=== PATIENT | female | born 2000 | race Caucasian/White ===

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

== ENCOUNTER → 2020-11-28 | Outpatient (CLI) | payer OTHER ==
--- NOTE | 2020-11-28 10:45 | US ---
EXAMINATION TYPE: US abdomen complete DATE OF EXAM: 11/28/2020 COMPARISON: NONE CLINICAL HISTORY: N91.2 Amenorrhea, unspecified. Elevated liver enzymes some limitations due to over lying bowel gas. EXAM MEASUREMENTS: Liver Length: 13.6 cm Gallbladder Wall: .13 cm CBD: .3 cm Spleen: 10.3 cm Right Kidney: 9.1 x 4.7 x 3.6 cm Left Kidney: 8.8 x 3.5 x 3.6 cm Pancreas: Obscured by bowel gas Liver: wnl Gallbladder: No stones seen Evidence for sonographic Parnell's sign: No CBD: Limited due to bowel gas. Spleen: wnl Right Kidney: Lower pole limited due to bowel gas. Left Kidney: wnl Upper IVC: wnl Abd Aorta: wnl The visualized liver is homogenous. The intrahepatic portion of the IVC and visualized abdominal aor ta are within normal limits. There is no evidence of cholelithiasis. Common bile duct is not distin ctly visualized and presumed not dilated. The visualized portions of the pancreas are homogenous. T he spleen is unremarkable. Kidneys are symmetric and free of hydronephrosis. No renal lesions are s een. IMPRESSION: Slightly suboptimal study, visualized portions of abdomen are unremarkable. No worrisome intrahepatic mass or intrahepatic ductal dilatation noted.
--- NOTE | 2020-11-28 10:46 | US ---
EXAMINATION TYPE: US pelvic complete DATE OF EXAM: 11/28/2020 COMPARISON: Pelvic ultrasound September 13, 2015 CLINICAL HISTORY: N91.2 Amenorrhea, unspecified. Amenorrhea TECHNIQUE: Transabdominal (TA). Transabdominal sonographic images of the pelvis were acquired. EXAM MEASUREMENTS: Uterus: 6.0 x 2.8 x 3.6 cm Endometrial Stripe: .5 cm Right Ovary: 2.6 x 1.0 x 1.5 cm Left Ovary: 3.0 x 2.1 x 2.5 cm 1. Uterus: Anteverted wnl 2. Endometrium: wnl 3. Right Ovary: Limited due to bowel gas 4. Left Ovary: follicles seen 5. Bilateral Adnexa: wnl 6. Posterior cul-de-sac: wnl Anteverted uterus. Endometrial stripe within normal limits. No free fluid. Ovaries symmetric and normal in size. IMPRESSION: Unremarkable transabdominal pelvic ultrasound.
== END | disposition home or self-care (01) ==
LOC: RADUSWWP 09:41
PROVIDERS: ATTEND Family Medicine
DX: N91.2 Amenorrhea, unspecified (principal)
CPT/HCPCS: 76700; 76856

== ENCOUNTER 2021-08-15 13:48 | Emergency (ER) | payer OTHER ==
[2021-08-15 15:11] VITALS: RESP 16
[2021-08-15 16:04] VITALS: TEMP 99.9
[2021-08-15] MEDS ORDERED: ACETAMINOPHEN TAB 500 MG TAB PO STA (16:13)
--- NOTE | 2021-08-15 16:14 | ED ---
General Adult HPI - General Chief complaint: Fever Stated complaint: chest pain, body aches, fever Time Seen by Provider: 08/15/21 15:48 Source: patient Mode of arrival: ambulatory Limitations: no limitations - History of Present Illness Initial comments: 20-year-old female without any significant past medical history presents to the emergency room for a chief complaint of high heart rate. Patient states that since last night she has had a fever. States her heart rate has been in the 110s. Patient states she did take Motrin prior to arrival. Patient states this change in her heart rate concerned her and she lives to be evaluated for it. She did develop a cough and congestion yesterday as well. She has had a little bit of chest tightness in addition. Denies any significant shortness of breath. Patient has no other complaints at this time including shortness of breath, chest pain, abdominal pain, nausea or vomiting, headache, or visual changes. - Related Data Home Medications Medication Instructions Recorded Confirmed ALPRAZolam [Xanax] 0.5 mg PO DAILY PRN 09/08/15 09/14/15 Escitalopram [Lexapro] 20 mg PO HS 09/08/15 09/14/15 cloNIDine HCL [Catapres] 0.1 mg PO HS 09/08/15 09/14/15 Naproxen [Naprosyn] 250 mg PO Q6H 09/13/15 09/14/15 Ondansetron [Zofran] 4 mg PO Q8H PRN 09/13/15 09/14/15 Ascorbic Acid [Vitamin C] 500 mg PO DAILY 09/14/15 09/14/15 Calcium Carbonate [Calcium] 600 mg PO DAILY 09/14/15 09/14/15 Cholecalciferol [Vitamin D3] 2,000 unit PO DAILY 09/14/15 09/14/15 Tylenol W/Codeine #2 1 tab PO TID PRN 09/14/15 09/14/15 Previous Rx's Medication Instructions Recorded Dicyclomine [Bentyl] 10 mg PO QID PRN #10 capsule 09/17/15 Ibuprofen [Motrin] 400 mg PO Q6HR PRN #25 tab 09/17/15 Omeprazole [PriLOSEC] 20 mg PO AC-BRKFST #60 cap 09/17/15 Ondansetron [Zofran ODT] 4 mg PO Q8HR PRN #10 tab 09/17/15 Polyethylene Glycol 3350 [Miralax] 17 gm PO DAILY #510 bottle 09/17/15 Allergies Allergy/AdvReac Type Severity Reaction Status Date / Time No Known Allergies Allergy Verified 08/15/21 15:11 Review of Systems ROS Statement: Those systems with pertinent positive or pertinent negative responses have been documented in the HPI. ROS Other: All systems not noted in ROS Statement are negative. Past Medical History Past Medical History: No Reported History History of Any Multi-Drug Resistant Organisms: None Reported Past Surgical History: No Surgical Hx Reported Past Psychological History: Anxiety Past Alcohol Use History: None Reported Past Drug Use History: None Reported - Past Family History Mother Family Medical History: Cancer Additional Family Medical History / Comment(s): mom had thyroid cancer. maternal grandparents - cancer maternal grandpa has heart disease and HTN General Exam Limitations: no limitations General appearance: alert, in no apparent distress Head exam: Present: atraumatic Eye exam: Present: normal appearance, PERRL, EOMI. Absent: scleral icterus, conjunctival injection ENT exam: Present: normal exam, mucous membranes moist Neck exam: Present: normal inspection, full ROM. Absent: tenderness Respiratory exam: Present: normal lung sounds bilaterally. Absent: respiratory distress, wheezes Cardiovascular Exam: Present: regular rate, normal rhythm, normal heart sounds GI/Abdominal exam: Present: soft, normal bowel sounds. Absent: distended, tenderness Course Vital Signs 08/15/21 08/15/21 14:33 16:03 Temperature 99.2 F 99.9 F H Pulse Rate 82 Respiratory 16 Rate Blood Pressure 120/76 O2 Sat by Pulse 98 Oximetry Medical Decision Making - Medical Decision Making vitals stable. Patient is well-appearing. Heart rate is regular and a normal rate. Suspect her tachycardia at home was secondary to fever. Patient had taken Motrin prior to arrival which probably helped as it is an antipyretic. She did test positive for COVID-19. At this time patient is stable for outpatient follow-up. She will return here for any worsening symptoms. She does not qualify for priority criteria antibody infusion. - Lab Data Lab Results 08/15/21 Range/Units 15:12 Coronavirus (PCR) Detected A (Not Detectd) Disposition Clinical Impression: COVID-19 Disposition: HOME SELF-CARE Condition: Good Instructions (If sedation given, give patient instructions): Coronavirus Disease 2019 (COVID-19), Fever in Adults (ED) Additional Instructions: Please alternate Motrin and Tylenol up to every 3 hours for fever. Drink plenty of fluids. Follow-up with your doctor. Return to the emergency room for any worsening symptoms. Is patient prescribed a controlled substance at d/c from ED?: No Referrals: Gurmeet Ochoa MD [Primary Care Provider] - 1-2 days Time of Disposition: 16:13
[2021-08-15 16:23] VITALS: BP 120/75; PULSE 86
== END 2021-08-15 16:24 | disposition home or self-care (01) ==
LOC: EC 13:48
DX: U07.1 COVID-19 (principal)
CPT/HCPCS: 87635; 99284

== ENCOUNTER 2021-10-18 00:16 | Emergency (ER) | payer OTHER ==
[2021-10-18 00:29] VITALS: TEMP 97.9
[2021-10-18] MEDS ORDERED: SODIUM CHLORIDE 0.9% 1,000 ML IV STA (01:07)
[2021-10-18] MEDS ORDERED: ONDANSETRON 4 MG/2 ML VIAL IVP STA ×2 (01:07→03:36)
[2021-10-18] MEDS ORDERED: FAMOTIDINE 20 MG/2 ML VIAL IV STA (01:08)
--- NOTE | 2021-10-18 01:11 | ED ---
General Adult HPI - General Chief complaint: Nausea/Vomiting/Diarrhea Stated complaint: Vomiting Time Seen by Provider: 10/18/21 01:00 Source: patient, family, RN notes reviewed, old records reviewed Mode of arrival: ambulatory Limitations: no limitations - History of Present Illness Initial comments: Well-appearing 20-year-old female presents with complaints of nausea vomiting diarrhea for the past 4 hours. She states did not member had similar symptoms yesterday which have resolved today. She states that she was vomiting so hard she passed out. She states that the pain is cramping in nature and somewhat relieved with vomiting and diarrhea. -: hour(s) (4) Location: abdomen Severity scale (1-10): 7 Quality: aching, other (cramp) Consistency: intermittent Associated Symptoms: nausea/vomiting, other (diarrhea) - Related Data Home Medications Medication Instructions Recorded Confirmed ALPRAZolam [Xanax] 0.5 mg PO DAILY PRN 09/08/15 09/14/15 Escitalopram [Lexapro] 20 mg PO HS 09/08/15 09/14/15 cloNIDine HCL [Catapres] 0.1 mg PO HS 09/08/15 09/14/15 Naproxen [Naprosyn] 250 mg PO Q6H 09/13/15 09/14/15 Ondansetron [Zofran] 4 mg PO Q8H PRN 09/13/15 09/14/15 Ascorbic Acid [Vitamin C] 500 mg PO DAILY 09/14/15 09/14/15 Calcium Carbonate [Calcium] 600 mg PO DAILY 09/14/15 09/14/15 Cholecalciferol [Vitamin D3] 2,000 unit PO DAILY 09/14/15 09/14/15 Tylenol W/Codeine #2 1 tab PO TID PRN 09/14/15 09/14/15 Previous Rx's Medication Instructions Recorded Dicyclomine [Bentyl] 10 mg PO QID PRN #10 capsule 09/17/15 Ibuprofen [Motrin] 400 mg PO Q6HR PRN #25 tab 09/17/15 Omeprazole [PriLOSEC] 20 mg PO AC-BRKFST #60 cap 09/17/15 Ondansetron [Zofran ODT] 4 mg PO Q8HR PRN #10 tab 09/17/15 Polyethylene Glycol 3350 [Miralax] 17 gm PO DAILY #510 bottle 09/17/15 Allergies Allergy/AdvReac Type Severity Reaction Status Date / Time No Known Allergies Allergy Verified 10/18/21 00:25 Review of Systems ROS Statement: Those systems with pertinent positive or pertinent negative responses have been documented in the HPI. ROS Other: All systems not noted in ROS Statement are negative. Past Medical History Past Medical History: No Reported History History of Any Multi-Drug Resistant Organisms: None Reported Past Surgical History: No Surgical Hx Reported Past Psychological History: Anxiety Smoking Status: Never smoker Past Alcohol Use History: None Reported Past Drug Use History: None Reported - Past Family History Mother Family Medical History: Cancer Additional Family Medical History / Comment(s): mom had thyroid cancer. ma ternal grandparents - cancer maternal grandpa has heart disease and HTN General Exam Limitations: no limitations General appearance: alert, in no apparent distress Head exam: Present: atraumatic Eye exam: Present: normal appearance. Absent: scleral icterus, conjunctival injection ENT exam: Present: normal exam, normal oropharynx, mucous membranes moist Neck exam: Present: normal inspection, full ROM. Absent: tenderness, meningis mus Respiratory exam: Present: normal lung sounds bilaterally. Absent: respiratory distress, wheezes, rales, rhonchi, stridor, chest wall tenderness, accessory muscle use, decreased breath sounds Cardiovascular Exam: Present: tachycardia GI/Abdominal exam: Present: soft. Absent: distended, tenderness, guarding, rebound, rigid Extremities exam: Present: normal capillary refill Back exam: Present: normal inspection, full ROM. Absent: tenderness, CVA tenderness (R), CVA tenderness (L), rash noted Neurological exam: Present: alert, oriented X3 Psychiatric exam: Present: normal affect, normal mood Skin exam: Present: warm, dry, intact. Absent: rash, cyanosis, diaphoretic Course Vital Signs 10/18/21 10/18/21 00:25 01:27 Temperature 97.9 F Pulse Rate 111 H 88 Respiratory 20 16 Rate Blood Pressure 111/78 104/79 O2 Sat by Pulse 97 99 Oximetry Medical Decision Making - Medical Decision Making Well-appearing 20-year-old female presents with complaints of nausea vomiting diarrhea for the past 4 hours. She states that family member had similar symptoms yesterday and his symptoms have resolved today. White blood cell count is 17. This is likely from persistent vomiting. Electrolytes are unremarkable. Influenza, coronavirus and RSV swab negative Patient was given a liter of normal saline with Zofran and Pepcid and states feeling much better. Vital signs are stable. patient remains afebrile with temperature 98.9. She is up ambulating with steady gait. Upon reexam abdomen is soft and minimally tender in the left upper quadrant. She has no right lower quadrant pain. This is likely a viral illness as another family member had similar symptoms yesterday. I did discuss with the patient's symptoms of appendicitis including right lower quadrant pain with or without fever. Directed the patient to return to the emergency room with these or any new or worsening symptoms. I also instructed the patient to increase her fluid intake starting with clear liquid diet for the next 12 hours and slowly advance with a BRAT diet. Patient is agreeable to this plan of care. Case discussed with Dr Ghosh. - Lab Data Result diagrams: 10/18/21 01:32 10/18/21 01:07 Lab Results 10/18/21 10/18/21 10/18/21 Range/Units 01:07 01:08 01:32 WBC 17.1 H (4.0-11.0) k/uL RBC 5.22 (3.80-5.40) m/uL Hgb 15.4 (11.4-16.0) gm/dL Hct 45.0 (34.0-46.0) % MCV 86.2 (80.0-100.0) fL MCH 29.6 (25.0-35.0) pg MCHC 34.3 (31.0-37.0) g/dL RDW 12.4 (11.5-15.5) % Plt Count 220 (150-450) k/uL MPV 8.1 Neutrophils % 91 % Lymphocytes % 3 % Monocytes % 4 % Eosinophils % 1 % Basophils % 0 % Neutrophils # 15.5 H (1.3-7.7) k/uL Lymphocytes # 0.5 L (1.0-4.8) k/uL Monocytes # 0.7 (0-1.0) k/uL Eosinophils # 0.2 (0-0.7) k/uL Basophils # 0.0 (0-0.2) k/uL Sodium 137 (137-145) mmol/L Potassium 4.6 (3.5-5.1) mmol/L Chloride 104 (98-107) mmol/L Carbon Dioxide 21 L (22-30) mmol/L Anion Gap 12 mmol/L BUN 15 (7-17) mg/dL Creatinine 0.72 (0.52-1.04) mg/dL Est GFR (CKD-EPI)AfAm >90 (>60 ml/min/1.73 sqM) Est GFR (CKD-EPI)NonAf >90 (>60 ml/min/1.73 sqM) Glucose 153 H (74-99) mg/dL Calcium 9.9 (8.4-10.2) mg/dL Total Bilirubin 1.3 (0.2-1.3) mg/dL AST 26 (14-36) U/L ALT 23 (4-34) U/L Alkaline Phosphatase 48 (38-126) U/L Total Protein 7.7 (6.3-8.2) g/dL Albumin 4.7 (3.5-5.0) g/dL Influenza Type A (PCR) Not Detected (Not Detectd) Influenza Type B (PCR) Not Detected (Not Detectd) RSV (PCR) Not Detected (Not Detectd) SARS-CoV-2 (PCR) Not Detected (Not Detectd) Disposition Clinical Impression: Nausea vomiting and diarrhea Disposition: HOME SELF-CARE Condition: Good Instructions (If sedation given, give patient instructions): Acute Nausea and Vomiting (ED), Acute Diarrhea (ED) Additional Instructions: Increase your fluid intake. Tylenol and/or Motrin as needed for pain. Follow- up with the primary care doctor next week. Return to the emergency room with any new or sneezing symptoms including right lower quadrant pain, persistent nausea and vomiting and fevers. Is patient prescribed a controlled substance at d/c from ED?: No Referrals: Grumeet Ochoa MD [Primary Care Provider] - 1-2 days
[2021-10-18 01:43] LABS: Basophils % (A) 0 %; Eosinophils # (A) 0.2 k/uL (0-0.7); Eosinophils % (A) 1 %; HGB 15.4 gm/dL (11.4-16.0); Lymphocytes # (A) 0.5 k/uL (1.0-4.8); Lymphocytes % (A) 3 %; MCH 29.6 pg (25.0-35.0); MCHC 34.3 g/dL (31.0-37.0); MCV 86.2 fL (80.0-100.0); Mean Platelet Volume 8.1; Monocytes # (A) 0.7 k/uL (0-1.0); Monocytes % (A) 4 %; Neutrophils # (A) 15.5 k/uL (1.3-7.7); Neutrophils % (A) 91 %; Platelet Count 220 k/uL (150-450); RBC 5.22 m/uL (3.80-5.40); RDW 12.4 % (11.5-15.5); WBC 17.1 k/uL (4.0-11.0)
[2021-10-18 01:52] LABS: ALT 23 U/L (4-34); AST 26 U/L (14-36); African American GFR (CKD) >90 (>60 ml/min/1.73 sqM); Albumin 4.7 g/dL (3.5-5.0); Alkaline Phosphatase 48 U/L (38-126); Anion Gap 12 mmol/L; Blood Urea Nitrogen 15 mg/dL (7-17); Calcium 9.9 mg/dL (8.4-10.2); Carbon Dioxide 21 mmol/L (22-30); Chloride 104 mmol/L (98-107); Glucose 153 mg/dL (74-99); Non-African American GFR(CKD) >90 (>60 ml/min/1.73 sqM); Potassium 4.6 mmol/L (3.5-5.1); Sodium 137 mmol/L (137-145); Total Bilirubin 1.3 mg/dL (0.2-1.3); Total Protein 7.7 g/dL (6.3-8.2)
[2021-10-18 02:19] LABS: Influenza A Not Detected (Not Detectd); Influenza B Not Detected (Not Detectd)
[2021-10-18 03:28] VITALS: RESP 16
[2021-10-18 03:47] LABS: Glucose,Whole Blood 114 mg/dL (75-99)
[2021-10-18 03:54] LABS: Appearance,Urine Clear (Clear); Bilirubin,Urine Negative (Negative); Blood,Urine Negative (Negative); Color,Urine Yellow; Glucose,Urine (UA) Negative (Negative); Ketones,Urine Negative (Negative); Leukocyte Esterase,Urine Negative (Negative); Nitrite,Urine Negative (Negative); Protein,Urine Negative (Negative); Specific Gravity,Urine 1.021 (1.001-1.035); Urobilinogen,Urine <2.0 mg/dL (<2.0)
[2021-10-18 04:15] VITALS: BP 104/69; PULSE 75
== END 2021-10-18 04:19 | disposition home or self-care (01) ==
LOC: EC 00:16
DX: R11.2 Nausea with vomiting, unspecified (principal); R19.7 Diarrhea, unspecified; Z20.822 Contact with and (suspected) exposure to COVID-19
CPT/HCPCS: 36415; 80053; 85025; 81003; 81025; 87636; 96361; 99284; 96374; 96375; 96376; J2405

== ENCOUNTER → 2021-12-09 | Outpatient (CLI) | payer OTHER ==
[2021-12-09 22:54] LABS: Basophils # (A) 0.04 X 10*3/uL (0.00-0.10); Basophils % (A) 0.6 %; Eosinophils # (A) 0.07 X 10*3/uL (0.04-0.35); HGB 12.8 g/dL (12.0-15.0); Immature Grans, Automated 0.3 %; Lymphocytes % (A) 36.1 %; MCH 27.6 pg (27.0-32.0); MCV 86.4 fL (80.0-97.0); Mean Platelet Volume 11.1 fL (9.5-12.2); Monocytes # (A) 0.52 X 10*3/uL (0.20-1.00); Monocytes % (A) 7.2 %; NRBC Per 100 WBC 0 /100 WBCS (0.0-0.0); Neutrophils # (A) 3.96 X 10*3/uL (1.80-7.70); Neutrophils % (A) 54.8 %; Platelet Count 247 X 10*3/uL (140-440); RBC 4.63 X 10*6/uL (4.10-5.20); RDW 12.4 % (11.5-14.5); WBC 7.21 X 10*3/uL (4.50-10.00)
[2021-12-09 23:16] LABS: Thyroid Peroxidase Antibodies <9.0 U/mL (0.0-33.0)
[2021-12-09 23:19] LABS: African American GFR (CKD) 147.5 (60.0-200.0); Albumin 4.4 g/dL (3.8-4.9); Albumin/Globulin Ratio 2.22 (1.60-3.17); Anion Gap 9.2 mmol/L (10.00-18.00); BUN/Creat Ratio 24.32 Ratio (12.00-20.00); Calcium 9.6 mg/dL (8.7-10.3); Carbon Dioxide 26.3 mmol/L (20.0-27.5); Non-African American GFR(CKD) 127.3 (60.0-200.0); Potassium 4.1 mmol/L (3.5-5.5); T4, Free (Free Thyroxine) 1.17 ng/dL (0.830-1.430); Total Bilirubin 0.6 mg/dL (0.30-1.20); Total Protein 6.4 g/dL (6.2-8.2)
== END | disposition home or self-care (01) ==
LOC: LABWHC1 15:16
PROVIDERS: ATTEND Nurse Practitioner Adult Health
DX: E04.1 Nontoxic single thyroid nodule (principal)
CPT/HCPCS: 36415; 80053; 84439; 84443; 84481; 85025; 86376; 86800

== ENCOUNTER → 2022-08-17 | Outpatient (CLI) | payer OTHER ==
--- NOTE | 2022-08-17 11:49 | US ---
EXAMINATION TYPE: US thyroid st tissue head/neck DATE OF EXAM: 08/17/2022 COMPARISON: US September 04, 2021 CLINICAL HISTORY: E04.1 Thyroid nodule. F/U nodules GLAND SIZE: Right Lobe: 5.0 x 1.4 x 1.7 cm Overall Parenchyma: homogenous Left Lobe: 4.7 x 1.4 x 1.3 cm Overall Parenchyma: homogeneous Isthmus Thickness: 0.3 cm NODULES RIGHT: # of nodules measured on right: 1 1. 2.5 X 1.0 x 1.0 cm, lower mid, solid or almost completely solid, isoechoic nodule, which is wide r than tall, with ill-defined margins, without echogenic foci. Prior size: 3.5 x 1.2 x 0.5 cm LEFT: # of nodules measured on left: 1 1. 2.2 X 1.1 x 0.7 cm, mid, solid or almost completely solid, hypoechoic nodule, which is wider angel n tall, with ill-defined margins, without echogenic foci. Prior size: 2.7 x 1.2 x 0.7 cm ISTHMUS: # of nodules measured in the isthmus: 0 Bilateral neck scanned, no evidence of lymphadenopathy. Stable nodules bilaterally, multiple, sub-centimeter colloid cysts scattered bilaterally. Stable homogeneous normal-sized thyroid with stable dominant nodules bilaterally as detailed above. IMPRESSION: As above. No significant new or enlarging nodules.
== END | disposition home or self-care (01) ==
LOC: RADUSWWP 09:48
PROVIDERS: ATTEND Otolaryngology
DX: E04.2 Nontoxic multinodular goiter (principal)
CPT/HCPCS: 76536

== ENCOUNTER → 2023-01-18 | Outpatient (CLI) | payer OTHER ==
--- NOTE | 2023-01-18 17:06 | FL ---
Upper GI and small bowel follow-through INDICATION: Constipation. Patient history provided is occasional low pelvic pain. Technical: Fluoroscopy time: 1 minute 29 seconds. Total dose area product (DAP) in uGy*m?, mGy*cm? (or similar): Not recorded Images obtained: 31. Upper gastrointestinal tract is evaluated utilizing double air contrast technique. Following completi on of the upper GI, small bowel follow-through was performed with additional oral administration of c ontrast. FINDINGS: [place] [employer] film: Mild fecal debris within the colon. Nonspecific bowel gas pattern. Upper GI: Esophagus dilates to normal caliber and has normal contour to the gastroesophageal junction . Gastroesophageal junction opens to normal caliber. Small amount of gastroesophageal reflux was obse rved during the study to the mid esophagus. There is complete stripping of the esophageal bolus and h orizontal drinking position. No secondary or tertiary contractions evident. Fundus body and antrum of the stomach are well visualized. No intraluminal or extramural defects evid ent. Barium readily empties into a normally positioned duodenal cap and sweep. Duodenal folds appear normal. Fourth portion of the duodenum is somewhat prominent. Small bowel follow-through: Following the additional oral administration of contrast sequential image s were obtained. There is rapid transit of the contrast to the colon in approximately [address] ileum is well visualized. Some subtle nodularity at the distal terminal ileum may be present. S mall aphthous ulcer may be present. Consider Crohn's disease. IMPRESSIONS: 1. Mild gastroesophageal reflux. 2. Normal remainder of upper GI. 3. Mild dilatation of the distal duodenum. 4. Rapid transit for small bowel to the colon at 15 minutes. 5. Some subtle nodularity and possible aphthous ulcers within the distalmost terminal ileum. Consider Crohn's disease.
== END | disposition home or self-care (01) ==
LOC: RADFLMAIN 08:54
PROVIDERS: ATTEND Internal Medicine Gastroenterology
DX: K21.9 Gastro-esophageal reflux disease without esophagitis (principal); K59.00 Constipation, unspecified; K31.89 Other diseases of stomach and duodenum
CPT/HCPCS: 74240; 74248

== ENCOUNTER → 2024-05-18 | Outpatient (CLI) | payer OTHER ==
--- NOTE | 2024-05-18 16:13 | US ---
EXAMINATION TYPE: US thyroid st tissue head/neck DATE OF EXAM: 05/18/2024 COMPARISON: Thyroid ultrasound 08/17/2022, 09/04/2021 CLINICAL INDICATION: Female, 23 years old with history of E04.1 THYROID NODULE; f/u, no issues TECHNIQUE: Grayscale and color Doppler imaging of the thyroid gland. FINDINGS: GLAND SIZE: Right Lobe: 5.6 x 1.0 x 1.3 cm Overall Parenchyma: heterogeneous Left Lobe: 4.7 x 1.2 x 1.3 cm Overall Parenchyma: heterogeneous Isthmus Thickness: 0.3 cm NODULES RIGHT: # of nodules measured on right: multiple subcentimeter colloid cysts, under 5mm. Previously seen right thyroid lobe 2.5 cm nodule is not well seen on today's exam. LEFT: # of nodules measured on left: multiple subcentimeter colloid cysts, under 5mm. Previously seen left thyroid lobe 2.2 Center nodules not well visualized on today's exam. ISTHMUS: # of nodules measured in the isthmus: 0 Bilateral neck scanned, no evidence of lymphadenopathy. IMPRESSION: Multiple stable subcentimeter colloid cysts. No new suspicious pulmonary nodule. Previously seen bila teral thyroid nodules are not well appreciated on today's exam. [facility], , 05/18/2024 4:11 PM
== END | disposition home or self-care (01) ==
LOC: RADUSWWP 15:40
PROVIDERS: ATTEND Family Medicine
DX: E04.2 Nontoxic multinodular goiter (principal)
CPT/HCPCS: 76536